=== PATIENT | female | born 1985 | race Caucasian/White ===

== ENCOUNTER 2022-08-16 05:10 | Emergency (ER) | payer OTHER, SELFPAY ==
[2022-08-16 05:14] VITALS: BP 118/76; PULSE 68; RESP 18; TEMP 36.6; O2SAT 100
[2022-08-16] MEDS: CLINDAMYCIN 600 MG/D5W 50 ML 600 MG/50 ML PIGGYBACK 100 MG IVPB (06:27)
--- NOTE | 2022-08-16 06:32 | ED.GENADULT ---
HPI - General Adult General Chief complaint: Skin/Abscess/Foreign Body Stated complaint: spider bite Time Seen by Provider: 08/16/22 05:44 History of Present Illness HPI narrative: 37-year-old female who presents the emergency room with chief complaint of right-sided neck discomfort. Patient reports that she had a insect bite of the right side of her neck saw her primary care provider was started on Bactrim. The patient states the area has become more red little bit more swollen and she is had a couple doses of the Bactrim. The patient is concerned that the infection was getting worse she also had chills and body aches at home. Related Data Allergies Allergy/AdvReac Type Severity Reaction Status Date / Time Zithromax Allergy Intermediate Uncoded 08/16/22 05:18 Swelling and itching of hands Review of Systems Review of Systems: A 10 system review of systems was completed on the patient and is negative except for what is stated in the HPI. Nursing and ancillary documentation was reviewed. [facility], [facility] Past Medical History Medical History Abscess Acute midline thoracic back pain (~06/01/22) Acute sinusitis, unspecified Allergic drug reaction BMI 33.0-33.9,adult Cellulitis Conjunctivitis COVID-19 Hoarseness of voice Migraine without aura and without status migrainosus, not intractable Situational anxiety UTI (urinary tract infection) Wellness examination Family History Family History Father Family history of coronary artery disease Family history of malignant neoplasm, Onset Age: 69 Mother Diabetes mellitus Patient's mother is in good health Grandparent Diabetes mellitus Family history of cardiovascular disease, Onset Age: 69 Social History Social History Smoking status: Never smoker Alcohol intake: never Exam Narrative: GENERAL: Well-appearing, well-nourished, and in no acute distress. HEAD: Normocephalic, atraumatic. EYES: PERRLA and EOMI. ENT: Nares clear, no rhinorrhea or epistaxis. Mucous membranes moist. NECK: Supple. CHEST: Clear to auscultation. No respiratory distress. HEART: Regular rate and rhythm. No murmur heard. Normal peripheral pulses. ABDOMEN: Soft, nontender, nondistended, normal active bowel sounds. EXTREMITIES: Normal range of motion. No edema. SKIN: Warm, dry, no rash. There is a dime size area of erythema on the right neck. There is no fluctuance there is no crepitance NEURO: No focal deficits. Alert and oriented x3. PSYCH: Normal mood and affect. Course Vital Signs Vital signs: Vital Signs Temperature 36.6 C 08/16/22 05:14 Pulse Rate 68 08/16/22 05:14 Respiratory Rate 18 08/16/22 05:14 Blood Pressure 118/76 08/16/22 05:14 Pulse Oximetry 100 08/16/22 05:14 Oxygen Delivery Room Air 08/16/22 05:14 Temperature 36.6 C 08/16/22 05:14 Pulse Rate 68 08/16/22 05:14 Respiratory Rate 18 08/16/22 05:14 Blood Pressure 118/76 08/16/22 05:14 Pulse Oximetry 100 08/16/22 05:14 Oxygen Delivery Room Air 08/16/22 05:14 Medical Decision Making Vital Signs Vital Signs: Vital Signs Temperature 36.6 C 08/16/22 05:14 Pulse Rate 68 08/16/22 05:14 Respiratory Rate 18 08/16/22 05:14 Blood Pressure 118/76 08/16/22 05:14 Pulse Oximetry 100 08/16/22 05:14 Oxygen Delivery Room Air 08/16/22 05:14 Temperature 36.6 C 08/16/22 05:14 Pulse Rate 68 08/16/22 05:14 Respiratory Rate 18 08/16/22 05:14 Blood Pressure 118/76 08/16/22 05:14 Pulse Oximetry 100 08/16/22 05:14 Oxygen Delivery Room Air 08/16/22 05:14 Lab Data Result diagrams: 08/16/22 06:19 08/16/22 06:19 Labs: Lab Results 08/16/22 08/16/22 08/16/22 Range/Units 06:19 06:19 06:19
[2022-08-16 06:38] LABS: Basophils Absolute Auto 0.1 K/mm3 (0.0-0.1); Basophils Percent Auto 0.8 % (0.2-1.2); Eosinophils Absolute Auto 0.4 K/mm3 (0-0.3); Eosinophils Percent Auto 5.6 % (0-4.4); Hematocrit 36.4 % (37.0-47.0); Hemoglobin 12.4 g/dL (12.0-15.0); Immature Granulocyte Absolute 0.02 K/mm3 (0.00-0.031); Immature Granulocyte Percent A 0.3 % (0-0.5); Lymphocytes Absolute Auto 2.59 K/mm3 (0.9-3.2); Lymphocytes Percent Auto 33.2 % (18.3-44.2); Mean Corpuscular HGB Conc 34.1 g/dl (32-36); Mean Corpuscular Hemoglobin 30.4 pg (26-34); Mean Corpuscular Volume 89.2 fl (80-100); Mean Platelet Volume 11.1 fl (7.4-10.4); Monocytes Absolute Auto 0.5 K/mm3 (0.1-0.6); Monocytes Percent Auto 6.3 % (2.6-8.5); Neutrophils Absolute Auto 4.2 K/mm3 (1.3-6.7); Neutrophils Percent Auto 53.8 % (45.5-73.1); Platelet Count Result 249 k/mm3 (150-375); Red Blood Count 4.08 M/mm3 (4.2-5.4); Red Cell Distribution Width 12.1 % (11.5-14.5); White Blood Count 7.8 K/mm3 (4.5-10.0)
[2022-08-16 06:44] LABS: Alanine Aminotransferase 31 U/L (6-35); Albumin Level 4.4 g/dL (3.5-5.1); Alkaline Phosphatase 84 U/L (38-126); Anion Gap 14 mmol/L (8-16); Aspartate Amino Transferase 31 U/L (14-36); Bilirubin,Total 0.3 mg/dL (0.2-1.3); Blood Urea Nitrogen 14 mg/dL (7-17); Calcium 8.9 mg/dL (8.4-10.2); Carbon Dioxide 26 mmol/L (22-30); Chloride 99 mmol/L (98-107); Estimated CRCL calculation 77 ml/min; Estimated Glomerular Filt Rate > 60; Glucose 107 mg/dL (65-110); Potassium 3.7 mmol/L (3.4-5.0); Sodium 139 mmol/L (137-145)
[2022-08-16 06:45] LABS: Lactic Acid Reflex 0.8 mmol/L (0.7-2.0)
== END 2022-08-16 07:23 | disposition home or self-care (01) ==
PROVIDERS: Emergency Provider Emergency Medicine; PCP Family Medicine
DX: L03.221 Cellulitis of neck (principal); Z87.440 Personal history of urinary (tract) infections; Z86.16 Personal history of COVID-19
CPT/HCPCS: 36415; 80053; 83605; 85025; 87040; 96365; 99284

== ENCOUNTER 2022-09-25 17:54 | Emergency (ER) | payer OTHER, SELFPAY ==
[2022-09-25 18:08] VITALS: BP 138/76; PULSE 74; RESP 16; TEMP 36.3; O2SAT 98
--- NOTE | 2022-09-25 20:05 | ED.SKABFB ---
HPI - Skin/Abscess/Foreign Bdy General Chief complaint: Skin/Abscess/Foreign Body Stated complaint: bumps on arm/foot hx of MRSA Time Seen by Provider: 09/25/22 19:07 History of Present Illness HPI narrative: Patient is a 37-year-old female who presents ER with concerns for her skin infection. 6 weeks ago she began getting intermittent bumps around her body. Typically they will resolve within 24 hours but on one occasion she had an area on her neck that became significantly more enlarged than her usual 1-2 centimeter diameter bumps. No purulent drainage or pruritus. She has been on several rounds of oral antibiotics including clindamycin. She is also been applying topical medication she does not know the name of. Today she has a spot on her right cheek, the top of her left foot, and 3 bumps on her right upper arm. She has 2 days of clindamycin left and felt she should be reevaluated. No fevers or chills or sweats. No one else in her household has similar lesions. She does not think any animals could have fleas or other bugs. She does shave her arms and foot but her razors 1 week old. Related Data Allergies Allergy/AdvReac Type Severity Reaction Status Date / Time Zithromax Allergy Intermediate Uncoded 09/25/22 18:22 Swelling and itching of hands Review of Systems Constitutional: Constitutional: Denies chills and Denies fever(s) Integumentary/Breasts: Skin/Breast: Denies pruritus, Denies erythema, Reports rash and Denies skin ulcer PMFSH Past Medical History Medical History Abscess Acute midline thoracic back pain (~06/01/22) Acute sinusitis, unspecified Allergic drug reaction BMI 33.0-33.9,adult Cellulitis Conjunctivitis COVID-19 Hoarseness of voice Migraine without aura and without status migrainosus, not intractable Situational anxiety UTI (urinary tract infection) Wellness examination Family History Family History Father Family history of coronary artery disease Family history of malignant neoplasm, Onset Age: 69 Mother Diabetes mellitus Patient's mother is in good health Grandparent Diabetes mellitus Family history of cardiovascular disease, Onset Age: 69 Social History Social History Smoking status: Never smoker Alcohol intake: never Exam Narrative: GENERAL: Well-appearing, well-nourished, and in no acute distress. HEAD: Normocephalic, atraumatic. EXTREMITIES: Normal range of motion. No edema. SKIN: Warm, dry. Patient has 5 separate areas that are indurated and raised no larger than 1 and half centimeters. Scabs removed from them and no purulent drainage or pustules noted. No bleeding. No excoriations. NEURO: Alert and oriented x3. PSYCH: Normal mood and affect. Course Course Emergency Course: Suspect this is an irritant dermatitis whether it could be from a insect bite or from something else around her home. Denies any new fabric softeners or body washes. Recommend follow-up with PCP. We will give a topical corticosteroid encouraged her to finish her antibiotics. Vital Signs Vital signs: Vital Signs Temperature 97.4 F L 09/25/22 18:08 Pulse Rate 74 09/25/22 18:08 Respiratory Rate 16 09/25/22 18:08 Blood Pressure 138/76 09/25/22 18:08 Pulse Oximetry 98 09/25/22 18:08 Oxygen Delivery Room Air 09/25/22 18:08 Temperature 97.4 F L 09/25/22 18:08 Pulse Rate 74 09/25/22 18:08 Respiratory Rate 16 09/25/22 18:08 Blood Pressure 138/76 09/25/22 18:08 Pulse Oximetry 98 09/25/22 18:08 Oxygen Delivery Room Air 09/25/22 18:08 Discharge Plan Discharge Clinical Impression: Dermatitis Patient Disposition: Home, Self-Care Condition: Stable Instructions: Dermatitis (ED) Additional Instructions: Return t
[2022-09-25 20:37] VITALS: BP 138/76; PULSE 75; RESP 18; O2SAT 99
== END 2022-09-25 20:37 | disposition home or self-care (01) ==
PROVIDERS: Emergency Provider Emergency Medicine; PCP Family Medicine
DX: L30.9 Dermatitis, unspecified (principal); Z86.16 Personal history of COVID-19; Z87.440 Personal history of urinary (tract) infections
CPT/HCPCS: 99283

== ENCOUNTER 2024-04-18 09:47 | Emergency (ER) | payer BC, SELFPAY ==
[2024-04-18 09:51] VITALS: BP 116/77; PULSE 105; RESP 20; TEMP 37; O2SAT 100
[2024-04-18 10:06] VITALS: RESP 17
--- NOTE | 2024-04-18 11:09 | ED.GENADULT ---
HPI - General Adult General Chief complaint: Unspecified Stated complaint: swollen lymph node Time Seen by Provider: 04/18/24 10:48 History of Present Illness HPI narrative: 38-year-old female present to the emergency department for evaluation of sore throat for the last 6 days. Patient reports primarily left-sided sore throat with painful lymph node. Patient did have follow-up primary care physician patient had negative strep COVID and flu test. Patient has been trying [id number] medications for pain control, states that ibuprofen seems to help the most but is still having worsening sore throat. Pain with swelling, no difficulty breathing. Also reports generalized fatigue body aches Related Data Home Medications Medication Instructions Recorded Confirmed calcium polycarbophil 625 mg 1,250 mg PO BID 01/15/23 01/15/23 tablet (FiberCon) magnesium oxide 500 mg PO BID 01/15/23 01/15/23 Allergies Allergy/AdvReac Type Severity Reaction Status Date / Time No Known Allergies Allergy Verified 04/18/24 10:09 Review of Systems Review of Systems: All systems reviewed & are unremarkable except as noted in HPI and below PMFSH Past Medical History Medical History (Updated 04/18/24 @ 13:09 by Aneesh Duff MD) Abscess Acute bronchitis Acute midline thoracic back pain (~06/01/22) Acute sinusitis, unspecified Allergic drug reaction BMI 32.0-32.9,adult BMI 33.0-33.9,adult Cellulitis Conjunctivitis COVID-19 Depression Fatigue Hoarseness of voice Hypersomnia Migraine without aura and without status migrainosus, not intractable Obesity (BMI 30.0-34.9) Seasonal allergic rhinitis Situational anxiety UTI (urinary tract infection) (~12/29/23) Wellness examination Family History Family History Father Family history of coronary artery disease Family history of malignant neoplasm, Onset Age: 69 Mother Diabetes mellitus Patient's mother is in good health Grandparent Diabetes mellitus Family history of cardiovascular disease, Onset Age: 69 Social History Social History (Updated 01/15/23 @ 15:25 by Olivia Avila MA) Smoking status: Never smoker Alcohol intake: never Drinks per week: 2 Alcohol use details: wine Substance use: never Substance use type: does not use Lack of Transportation: No Lack of Food: Never True Current Housing: I Have Housing Concerned About Future Housing: No Difficulty Paying Gas/Electric Bills: No Difficulty Paying for Meds: No Currently Unemployed: No Education: Bachelor's Degree Difficulty w/ Childcare or Family Care: No Exam Narrative: APPEARANCE: Well appearing, no pain, no distress, well-nourished. HEAD: normocephalic, atraumatic. EYES: PERRLA/EOMI, conjunctivae clear. NOSE: Normal no drainage EARS:TMS clear with good light reflex. THROAT: Mild pharynx erythema, no peritonsillar swelling, no posterior pharynx swelling or asymmetry, uvula is midline NECK: Supple. No adenopathy, no masses. RESPIRATORY: Airway patent, respirations nonlabored. Clear to auscultation bilaterally, no rales, rhonchi, wheezing. CARDIOVASCULAR: Regular rate and rhythm without murmurs rubs or gallops. ABDOMINAL: Soft, nontender, nondistended, normal bowel sounds MUSCULOSKELETAL: Moves all extremities. Strength/ROM intact, No edema, No calf tenderness. NEURO: Alert. Cranial nerves II through XII intact. Good gait. Good coordination SKIN: Warm, dry. Normal Color Course Course Emergency Course: Patient was updated on the results of her workup and plan for treatment. Vital Signs Vital signs: Vital Signs Temperature 98.6 F 04/18/24 09:51 Pulse Rate 105 H 04/18/24 09:51 Respiratory Rate 20 04/18/24 09:51 Blood Pressure 116/77 04/18/24 09:51 Pulse Oximetry 100 04/18/24 09:51 Oxygen Delivery Room Air 04/18/24 09:51 Temperature 98.6 F 04/18/24
[2024-04-18] MEDS: SODIUM CHLORIDE 0.9% IV 1,000 ML 999 ML IV CONT (11:23)
[2024-04-18] MEDS: dexAMETHasone SOD PHOS INJ 10 MG/ML 1 ML VIAL IV PUSH (11:23)
[2024-04-18 11:30] LABS: Basophils Absolute Auto 0.1 K/mm3 (0.0-0.1); Basophils Percent Auto 0.6 % (0.2-1.2); Eosinophils Absolute Auto 0.2 K/mm3 (0-0.3); Eosinophils Percent Auto 1.5 % (0-4.4); Hematocrit 38.4 % (37.0-47.0); Hemoglobin 12.8 g/dL (12.0-15.0); Immature Granulocyte Absolute 0.04 K/mm3 (0.00-0.031); Immature Granulocyte Percent A 0.4 % (0-0.5); Lymphocytes Absolute Auto 1.79 K/mm3 (0.9-3.2); Lymphocytes Percent Auto 16.3 % (18.3-44.2); Mean Corpuscular HGB Conc 33.3 g/dl (32-36); Mean Corpuscular Hemoglobin 30.1 pg (26-34); Mean Corpuscular Volume 90.4 fl (80-100); Mean Platelet Volume 10.7 fl (7.4-10.4); Monocytes Absolute Auto 0.6 K/mm3 (0.1-0.6); Monocytes Percent Auto 5.3 % (2.6-8.5); Neutrophils Absolute Auto 8.3 K/mm3 (1.3-6.7); Neutrophils Percent Auto 75.9 % (45.5-73.1); Platelet Count Result 275 k/mm3 (150-375); Red Blood Count 4.25 M/mm3 (4.2-5.4); Red Cell Distribution Width 12.5 % (11.5-14.5)
[2024-04-18 11:41] LABS: Alanine Aminotransferase 42 U/L (6-35); Albumin Level 4.4 g/dL (3.5-5.1); Alkaline Phosphatase 121 U/L (38-126); Anion Gap 8 mmol/L (4-12); Aspartate Amino Transferase 34 U/L (14-36); Bilirubin,Total 0.6 mg/dL (0.2-1.3); Blood Urea Nitrogen 9 mg/dL (7-17); Calcium 8.9 mg/dL (8.4-10.2); Carbon Dioxide 31 mmol/L (22-30); Chloride 98 mmol/L (98-107); Estimated CRCL calculation 93 ml/min; Estimated Glomerular Filt Rate > 60; Glucose 96 mg/dL (65-110); Potassium 3.9 mmol/L (3.4-5.0); Sodium 137 mmol/L (137-145)
[2024-04-18 11:44] LABS: Strep Group A RT-PCR NOT DETECTED (Negative)
[2024-04-18 11:56] LABS: Influenza A QL RT-PCR Negative (Negative); Influenza B QL RT-PCR Negative (Negative); RSV RNA, RT-PCR Negative (Negative); SARS-CoV-2 RNA PCR Negative (Negative)
[2024-04-18 12:12] LABS: Monoscreen Negative (Negative); Negative Monotest Control Negative (Negative); Positive Monotest Control Positive (Positive)
[2024-04-18] MEDS: AMOXICILLIN/CLAVULANATE K 875-125 MG TAB 1 TABLET PO (13:18)
[2024-04-18 13:23] VITALS: BP 123/73; PULSE 88; RESP 17; O2SAT 97
== END 2024-04-18 13:26 | disposition home or self-care (01) ==
PROVIDERS: Emergency Provider Emergency Medicine; PCP Family Medicine
DX: J02.9 Acute pharyngitis, unspecified (principal); Z20.822 Contact with and (suspected) exposure to COVID-19; E66.9 Obesity, unspecified; Z68.33 Body mass index [BMI] 33.0-33.9, adult; Z87.440 Personal history of urinary (tract) infections; Z86.16 Personal history of COVID-19; Z79.899 Other long term (current) drug therapy
CPT/HCPCS: 36415; 80053; 85025; 86308; 87637; 87651; 96361; 96374; 99284; A9270; J1100; J7030

== ENCOUNTER 2024-06-03 09:05 | Emergency (ER) | payer BC, SELFPAY ==
[2024-06-03 09:07] VITALS: BP 122/79; PULSE 72; RESP 16; TEMP 36.4; O2SAT 100
--- NOTE | 2024-06-03 09:24 | ED.SKABFB ---
HPI - Skin/Abscess/Foreign Bdy General Chief complaint: Skin/Abscess/Foreign Body <Meaghan Lai PA-C - Last Filed: 06/03/24 17:54> Stated complaint: infected finger <Meaghan Lai PA-C - Last Filed: 06/03/24 17:54> Time Seen by Provider: 06/03/24 09:11 <Meaghan Lai PA-C - Last Filed: 06/03/24 17:54> History of Present Illness HPI narrative: 38 y/o old female presents emergency department with concerns for right thumb infection for 6 days. Patient states at the onset of symptoms she removed her acrylic nails and noticed black under her right thumbnail and pain. States she went to urgent care and was prescribed Augmentin for concerns for thumb infection. She has been taking this as prescribed without improvement which prompted her to come to the ED today. She is reporting surrounding redness and pain as well as swelling to the distal phalanx. She is also reporting crusting and purulent drainage from beneath the nail. Denies fever, vomiting. <Meaghan Lai PA-C - Last Filed: 06/03/24 17:54> Related Data Allergies/Adverse reactions: Allergies Allergy/AdvReac Type Severity Reaction Status Date / Time No Known Allergies Allergy Verified 05/19/24 11:09 <Meaghan Lai PA-C - Last Filed: 06/03/24 17:54> Review of Systems Review of Systems: All systems reviewed & are unremarkable except as noted in HPI and below <Meaghan Lai PA-C - Last Filed: 06/03/24 17:54> [facility] Past Medical History Medical History: Medical History Abscess Acute bronchitis Acute midline thoracic back pain (~06/01/22) Acute sinusitis, unspecified Allergic drug reaction B12 deficiency BMI 32.0-32.9,adult BMI 33.0-33.9,adult BMI 34.0-34.9,adult Cellulitis Conjunctivitis COVID-19 Depression Fatigue Hoarseness of voice Hypersomnia Migraine without aura and without status migrainosus, not intractable Obesity (BMI 30.0-34.9) Seasonal allergic rhinitis Situational anxiety UTI (urinary tract infection) (~12/29/23) Wellness examination <Meaghan Lai PA-C - Last Filed: 06/03/24 17:54> Family History Family History: Family History Father Family history of coronary artery disease Family history of malignant neoplasm, Onset Age: 69 Mother Diabetes mellitus Patient's mother is in good health Grandparent Diabetes mellitus Family history of cardiovascular disease, Onset Age: 69 <Meaghan Lai PA-C - Last Filed: 06/03/24 17:54> Social History Social History: Social History Smoking status: Never smoker Alcohol intake: never Drinks per week: 2 Alcohol use details: wine Substance use: never Substance use type: does not use Lack of Transportation: No Lack of Food: Never True Current Housing: I Have Housing Concerned About Future Housing: No Difficulty Paying Gas/Electric Bills: No Difficulty Paying for Meds: No Currently Unemployed: No Education: Bachelor's Degree Difficulty w/ Childcare or Family Care: No <Meaghan Lai PA-C - Last Filed: 06/03/24 17:54> Exam Narrative: GENERAL: Well-appearing, well-nourished, and in no acute distress. HEAD: Normocephalic, atraumatic. NECK: Supple. CHEST: Clear to auscultation. No respiratory distress. HEART: Regular rate and rhythm. No murmur heard. Normal peripheral pulses. EXTREMITIES: Normal range of motion. No edema. SKIN: Right thumb with approximately 70% of the distal 1st nail with subungual hematoma, tenderness to palpation, erythema and edema to the distal phalanx with tenderness to palpation and crusting to to the distal nail bed inferior to the nail. No purulence. No fluctuation or induration. Patient has full active and passive range of motion of finger. Cap refill less than 2.
[2024-06-03] MEDS: SULFAMETHOXAZOLE/TRIMETHOPRIM 800/160 MG DS TABLET 1 TAB PO (09:39)
== END 2024-06-03 09:45 | disposition home or self-care (01) ==
LOC: ANHED 09:44
PROVIDERS: Emergency Provider Physician Assistant; PCP Family Medicine
DX: L03.011 Cellulitis of right finger (principal); S60.011A Contusion of right thumb without damage to nail, initial encounter; X58.XXXA Exposure to other specified factors, initial encounter; E53.8 Deficiency of other specified B group vitamins; E66.9 Obesity, unspecified; Z68.35 Body mass index [BMI] 35.0-35.9, adult
CPT/HCPCS: 11740; 99283; A9270